=== PATIENT | female | born 1980 | race Caucasian/White ===

== ENCOUNTER 2020-10-13 17:33 | Emergency (ER) | payer MEDICARE, MEDICAID, SELFPAY ==
--- NOTE | ~2020-10-13 | XR_ITS ---
XR ribs RT 2V w CXR 2V DATE: 10/13/2020 18:26 INDICATION: Fell off of couch. Seizure. Right anterior chest pain TECHNIQUE: PA and lateral chest. 3 views of the right ribs. COMPARISON: None FINDINGS: Normal heart size. No hilar or mediastinal enlargement. The lungs are normally inflated and clear of infiltrate or consolidation. No pleural effusion or pulmonary vascular congestion or pneumo thorax. No right rib fracture is noted. No other skeletal significant abnormality is noted. IMPRESSION: No right rib fracture is detected No active cardiopulmonary disease Reviewed, dictated and finalized at location A.
[2020-10-13 17:44] VITALS: BP 142/83; PULSE 102; RESP 18; TEMP 36.6; O2SAT 99
--- NOTE | 2020-10-13 17:52 | ED.GENADULT ---
HPI - General Adult General Chief complaint: Chest Pain Stated complaint: right side injury Time Seen by Provider: 10/13/20 17:52 Source: patient and RN notes reviewed History of Present Illness HPI narrative: Patient is a 40-year-old female who presents the urgent care with complaints of right rib pain. Patient states that she has stress-induced seizures and her boyfriend said that she fell off the couch having a seizure last night. Patient is unsure what she hit but states that ever since the fall she has been having the right rib pain. Patient states that she has increased pain with movement and deep breathing. Patient has not taken anything for her pain. Denies of any shortness of breath. No other acute complaints. No acute distress noted. Patient aware of the plan of care. Some parts of this dictation were generated by voice recognition software and may contain typographical and/or grammatical inaccuracies. Related Data Home Medications Medication Instructions Recorded Confirmed cariprazine [Vraylar] 3 mg PO DAILY 10/13/20 10/13/20 hydroxyzine HCl 25 mg PO TID 10/13/20 10/13/20 lamotrigine 50 mg PO DAILY 10/13/20 10/13/20 lisinopril 10 mg PO DAILY 10/13/20 10/13/20 propranolol 120 mg PO DAILY 10/13/20 10/13/20 Allergies Allergy/AdvReac Type Severity Reaction Status Date / Time amitriptyline Allergy Unknown Rash Verified 10/13/20 18:03 latex Allergy Unknown Hives / Verified 10/13/20 18:03 Red Face tramadol Allergy Unknown Rash Verified 10/13/20 18:03 acetaminophen AdvReac Unknown Nausea and Verified 10/13/20 18:03 Vomiting codeine AdvReac Unknown Nausea and Verified 10/13/20 18:03 Vomiting meloxicam AdvReac Unknown Nausea Verified 10/13/20 18:03 prochlorperazine AdvReac Unknown Nervousness Verified 10/13/20 18:03 Contrast Media Allergy Unknown Hives / Uncoded 11/13/18 15:21 Red Face Review of Systems Review of Systems: CONSTITUTIONAL: Denies fever, chills, or sweats. EYES: Denies visual changes, redness, or discharge. ENT: Denies rhinorrhea, congestion, sore throat, or otalgia. CARDIOVASCULAR: Denies chest pain, palpitations, or edema. RESPIRATORY: Denies cough or dyspnea. Reports of right-sided rib pain with pain on deep breathing GASTROINTESTINAL: Denies abdominal pain, nausea, vomiting, or diarrhea. GENITOURINARY: Denies dysuria or hematuria. SKIN: Denies rash or itching. MUSCULOSKELETAL: Denies back pain, joint pain, or myalgia. NEUROLOGIC: Denies headache, numbness, or weakness. All other systems reviewed are negative, except as documented in HPI. PMFSH Comments At the time of my signature, I reviewed and agree with the nursing past medical, surgical, social, and family history. There is no relevant family history pertinent to the patient complaint. Exam Narrative: GENERAL: This is a well-nourished, well-developed patient, in no apparent distress. HEAD: normocephalic, atraumatic. EYES: PERRL. Sclera clear/white. Vision is grossly intact. EARS: External ears normal NOSE: External nose normal with no obvious nasal discharge, nares without redness, no rhinorrhea. THROAT: Mucous membranes moist NECK: Neck supple CARDIOVASCULAR: Regular rate and rhythm without murmurs, gallops, or rubs. RESPIRATORY: Clear to auscultation. Breath sounds equal bilaterally. No wheezes, rales, or rhonchi. Anterior right rib tenderness SKIN: warm, intact with no suspicious lesions or rash, good texture and turgor. NEURO: awake, alert, and oriented to person, place and time. There were no obvious focal neurologic abnormalities. EXTREMITIES: No clubbing, cyanosis, or edema. BACK: Mild thoracic tenderness without any ecchymosis Course Vital Signs Vital signs: Vital Signs Temperature 97.9 F 10/13/20 17:44 Pulse Rate 102 H 10/13/20 17:44 Respiratory Rate 18 10/13/20 17:44 Blood Pressure 142/83 H 10/13/20 17:44 Pulse Oximetry 99 10/13/20 17:44 Temperature 97.9 F 10/13/20 17:44 Pulse
== END 2020-10-13 18:40 | disposition home or self-care (01) ==
PROVIDERS: Emergency Provider Nurse Practitioner Family; PCP Family Medicine
DX: S20.211A Contusion of right front wall of thorax, initial encounter (principal); W08.XXXA Fall from other furniture, initial encounter; E78.00 Pure hypercholesterolemia, unspecified; I10 Essential (primary) hypertension; J45.909 Unspecified asthma, uncomplicated; F41.9 Anxiety disorder, unspecified; F31.9 Bipolar disorder, unspecified; Z86.14 Personal history of Methicillin resistant Staphylococcus aureus infection; G40.909 Epilepsy, unspecified, not intractable, without status epilepticus
CPT/HCPCS: 71046; 71100; 99213; G0463